=== PATIENT | female | born 1975 | race Asian ===

== ENCOUNTER 2018-09-01 14:52 | Emergency (ER) | payer OTHER ==
--- OUTSIDE RECORDS SUMMARY | 2018-09-01 14:54 | XMS REPORT | Continuity of Care Document ---
:1975 Author Organization Interface Problems Problem Status Onset Classification Date Comments Source Date Reported Z12.31 - ENCNTR Active 04/16/20 OPID SCREEN MAMMOGRAM FOR [address] [place] [address],[facility] [place] Hepatomegaly, not 02/07/20 04/20/2018 [facility] elsewhere classified [address] [place] [address] ACUTE LUQ PAIN Active 11/13/[address] Encounter for 04/24/2018 OPID screening mammogram [place] for malignant neoplasm of breast Motion sickness Active Problem 04/24/2018 OP[facility] [place],[facility] [place] Nonspecific 04/20/2018 [facility] elevation of levels [facility] of transaminase and Center lactic acid dehydrogenase [LDH] Pure 04/20/2018 [facility] hyperglyceridemia [facility] Medications Medication Details Route Status Patient Ordering Order Source Instructions Provider Date ketOROLAC IV, ONCE Inactive (ANES) 017 [place] lidocaine Route: IV, Drug Inactive (ANES) form: INJ, 017 [place] ONCE, Stop [place] date: 05/30/17 13:44:00 CDT propofol (ANES) Route: IV, Drug Inactive form: INJ, 017 [place] ONCE, Stop [place] date: 05/30/17 13:44:00 CDT fentaNYL (ANES) Route: IV, Drug Inactive form: INJ, 017 [place] ONCE, Stop [place] date: 05/30/17 13:44:00 CDT ceFAZolin Route: IV, Drug Inactive (ANES) form: INJ, 017 [place] ONCE, Stop [place] date: 05/30/17 13:44:00 CDT dexamethasone Route: IV, Drug Inactive (ANES) form: INJ, 017 [place] ONCE, Stop [place] date: 05/30/17 13:44:00 CDT POLYETHYLENE 17 gm, PO, Active GLYCOL 3350 142 Daily, PRN 017 [place] MG/ML Oral Constipation, X [place] Solution 31 day, # 527 [Miralax] gm, 0 Refill(s) tramadol 50 mg=1 tab, Active hydrochloride PO, Q6H, PRN 017 [place] 50 MG Oral Pain, X 5 day, [place] Tablet # 20 tab, 0 Refill(s) Motrin 600 mg 600 mg=1 tab, Active oral tablet PO, Q8H, PRN 017 [place] Pain, take with [place] food, X 5 day, # 15 tab, 0 Refill(s) midazolam Route: IV, Drug Inactive (ANES) form: SOLN, 017 [place] ONCE, Stop [place] date: 05/30/17 13:24:00 CDT ondansetron Route: IV, Drug Inactive (ANES) form: INJ, 017 [place] ONCE, Stop [place] date: 05/30/17 13:24:00 CDT LR 1000 mL INJ Route: IV, Inactive (ANES) Total Volume: 017 [place] 1,000, Start [place] date: 05/30/17 12:45:00 CDT, Stop date: 05/30/17 13:45:00 CDT 72 HR 1 patch, Route: Inactive Scopolamine TOP, Drug Form: 017 [place] 0.0139 MG/HR ERFILM, Dosing [place] Transdermal Weight 56.818, Patch kg, ONCE, Start date: 05/30/17 9:35:00 CDT, Duration: 1 doses or times, Stop date: 05/30/17 9:35:00 CDT Calcium 1,000 mL, Rate: Inactive Chloride 0.0014 25 ml/hr, 017 [place] MEQ/ML / Infuse over: 40 [place] Potassium hr, Route: IV, Chloride 0.004 Dosing Weight MEQ/ML / Sodium 56.818 kg, Chloride 0.103 Total Volume: MEQ/ML / Sodium 1,000, Start Lactate 0.028 date: 05/30/17 MEQ/ML 8:57:00 CDT, Injectable Duration: 30 Solution day, Stop date: 06/29/17 8:56:00 CDT ceFAZolin 2 gm, 100 mL, Inactive Route: IVPB, 017 [place] Drug form: INJ, [place] ONCALL, Start date: 05/30/17 6:00:00 CDT, Duration: 1 doses or times, Stop date: 05/30/17 23:00:00 CDT, ABX Indication: Surgical ProphylaxisNote s: Same as: Ancef Lactated 1,000 mL, Rate: Inactive Ringers 1,000 75 ml/hr, 017 [place] mL Infuse over: [place] 13.3 hr, Route: IV, Dosing Weight 56.818 kg, Total Volume: 1,000, Start date: 05/30/17 6:00:00 CDT, Duration: 30 day, Stop date: 06/29/17 5:59:00 CDT Ofirmev 1,000 mg, 100 Inactive mL, Route: IV, 017 [place] Drug form: INJ, [place] ONCALL, Start date: 05/30/17 6:00:00 CDT, Duration: 1 doses or times, Stop date: 05/30/17 23:00:00 CDTNotes: Infuse over 15 minutes Do not exceed 4gm/day of acetaminophen MEDICATION WASTE Product Size: 1000 mg Product Wasted: ___ mg Neurontin 300 mg, 1 cap, Inactive Route: PO, Drug 017 [place] form: CAP, [place] ONCALL, Start date: 05/30/17 6:00:00 CDT, Duration: 1 doses or times, Stop date: 05/30/17 23:00:00 CDTNotes: (Same as: Neurontin) CeleBREX 400 mg, 2 cap, Inactive Route: PO, Drug 017 [place] form: CAP, [place] ONCALL, Start date: 05/30/17 6:00:00 CDT, Duration: 1 doses or times, Stop date: 05/30/17 23:00:00 CDTNotes: NSAID. Please check indication. Not for seizure. (Same As: CeleBREX) Allergies, Adverse Reactions, Alerts Substance Category Reaction Severity Reaction Status Date Comments Source type Reported Immunizations Immunization Date Given Site Status Last Updated Comments Source Results Order Results Value Reference Date Interpretation Comments Source Name Range Breast Breast 04/21 - OPID Mammo Mammo /2017 - [place] Scrn ALDO Scrn ALDO incl CAD incl CAD KIRAN BECK Read by: Cesilia Valera MD Dictated Date/time: 04/21/18 10:11 BILATERAL DIGITAL SCREENING MAMMOGRAM WITH CAD: 04/21/2018 Electronically Signed by: Cesilia Valera MD 04/21/18 10 :11 FINAL REPORT CLINICAL: /Routine. Current study was evaluated with a Computer Aided Detection (CAD) system. COMPARISON:Comparison is made to exam dated: 04/02/2017 mammogram - [facility]. TECHNIQUE: Mammographic views were obtained using digital acquisition. Current study was also evaluated with a Computer Aided Detection (CAD) system. FINDINGS: The tissue of both breasts is heterogeneously dense, which could obscure detection of small masses. Bilateral breast implants are intact. No significant masses, calcifications, or other findings are seen in either breast. There has been no significant interval change. IMPRESSION: BENIGN RECOMMENDATION:There is no mammographic evidence of malignancy. A 1 year screening mammogram is recommended.(04/22/2019) This exam was interpreted at [id number] for MYAH Ramírez 15. Professional services are provided by the [facility]. Cesilia Valera M.D. ms/penrad:04/21/2018 10:11:32 Career Coach(s): Maria Esther Hernandez [facility] letter sent: BI-RADS 1/2 Dense Mammogram BI-RADS: 2 Benign Spine Spine Study: Cervical spine, 3 views 02/27 - CHANI ERWIN cervical cervical /2017 - [place] 2 or 3 2 or 3 view DX view DX Clinical Indication: - neck pain Read by: Oumar Cruz MD Dictated Date/time: 02/27/18 10:51 Electronically Signed by: Oumar Cruz MD 02/27/18 10:52 FINAL REPORT Comparison: None FINDINGS: Multiple views of the cervical spine show visualization through the top of the T1 vertebral body on the lateral view. No acute vertebral body height loss or subluxation is seen. There is mild reversal of cervical lordosis in the lower cervical spine. Mild disc height loss at C5-C6 is seen, compatible with mild degenerative disc disease. Odontoid process is intact. Prevertebral soft tissues are unremarkable. IMPRESSION: Mild degenerative disc disease of the lower cervical spine. SL: [id number] URINE U Preg Negative Negative 05/30 [place] CHEM /2016 [place] (05/30/17 9:00 AM) Abdomen Abdomen Patient Name: LINDA العرايق 04/16 - OPID RUQ US RUQ US /2016 - [facility] : 1975; Age: 41 years Female MR: [id number] Read by: Ernie Centeno MD Dictated Date/time: 04/16/17 13:43 Electronically Signed by: Ernie Centeno MD 04/16/17 13:46 FINAL REPORT Study: Abdomen RUQ US 04/16/2017 9:47 AM CDT Clinical Indication: R94.5 Abnormal results of liver function studies - R94.5 Abnormal results of liver function studies. COMPARISON: None TECHNIQUE: Grayscale and limited color sonographic evaluation of the right upper quadrant of the abdomen and gallbladder region was performed with standard technique. FINDINGS: LIVER: The liver measures 19 cm sagittally. There is increased parenchymal echotexture. BILE DUCTS: The intrahepatic and extrahepatic bile ducts are not dilated. The common bile duct measures 2.3 mm. The distal common bile duct is not well seen. GALLBLADDER: There are no gallstones, gallbladder sludge, pericholecystic fluid or wall thickening. PANCREAS: The pancreas body is normal. The head and tail are obscured by bowel gas. KIDNEY: The right kidney measures 11.0 x 3.6 x 5.6 cm. The renal cortical thickness measures 1.5 cm. There is normal renal contour and morphology, with normal parenchymal echotexture. There is no hydronephrosis. ASCITES: There is no right upper quadrant abdominal ascites. IMPRESSION: Hepatomegaly. Hepatocellular disease most likely due to fatty infiltration. SL: [id number] Breast Breast - BREAST MAMMO SCRN ALDO INCL CAD KIRAN 04/02 - OPID Mammo Mammo /2016 - [facility] Scrn ALDO Scrn ALDO BILATERAL DIGITAL SCREENING MAMMOGRAM WITH CAD: 04/02/2017 incl CAD incl CAD KIRAN BECK CLINICAL: /Z12.31 Encounter For Screening Mammogram For Malignant Neoplasm Of Breast. Read by: Tracie Rob MD Dictated Date/time: 04/02/17 11:27 Electronically Signed by: Tracie Rob MD 04/02/17 11:27 FINAL REPORT Current study was evaluated with a Computer Aided Detection (CAD) system. No prior exams were available for comparison. The tissue of both breasts is heterogeneously dense, which could obscure detection of small masses. Bilateral breast implants are intact. No significant masses, calcifications, or other findings are seen in either breast. IMPRESSION: NEGATIVE There is no mammographic evidence of malignancy. A 1 year screening mammogram is recommended. Professional services are provided by the [facility] [place] [facility]. Tracie johnson/deandra:04/02/2017 11:27:13 Career Coach: Cherie Sanders, [facility] This exam was dictated and interpreted by [address] [place] [address]. letter sent: Normal [place] Mammogram BI-RADS: 1 Negative Vital Signs Vital Sign Value Date Comments Source Height 152.4 cm 01/12/2018 [facility] Weight 59.545 01/12/2018 [facility] BMI Calculated 25.64 01/12/2018 [facility] Systolic (mm Hg) 105 01/12/2018 [facility] Diastolic (mm Hg) 67 01/12/2018 [facility] Respitory Rate 16 01/12/2018 [facility] Heart Rate 68 01/12/2018 [facility] Center Systolic (mm Hg) 100 05/30/2017 [place] Diastolic (mm Hg) 65 05/30/2017 [place] Respitory Rate 15 05/30/2017 [place] Systolic (mm Hg) 106 05/30/2017 [place] Diastolic (mm Hg) 64 05/30/2017 [place] Respitory Rate 15 05/30/2017 [place] Systolic (mm Hg) 100 05/30/2017 [place] Diastolic (mm Hg) 57 05/30/2017 [place] Respitory Rate 12 05/30/2017 [place] Weight 59.119 05/30/2017 [place] BMI Calculated 23.84 05/30/2017 [place] Heart Rate 61 05/30/2017 [place] Height 157.48 cm 05/27/2017 [place] Heart Rate 66 05/27/2017 [place] Encounters Location Location Encounter Encounter Reason Attending ADM DC Status Source Details Type Number For Provider Date Date Visit [facility] [id number] Lien 04/02 04/03 OP[facility] Outpatient [place] [facility] Outpt Diag [id number] Lien 04/16 04/17 [facility] Outpatient Services [facility] Day Surgery [id number] Shinil 05/30 05/30 [facility] Thiago Brunson [facility] Outpatient [id number] [place] 01/12 01/13 Rickey Das [facility] [id number] Lien 02/27 02/28 [facility] Outpatient Services [place] [facility] Outpt Diag [id number] Lien 04/21 04/22 OPID Outpatient Services Eugene [facility] Procedures Procedure Code Date Perfomer Comments Source Abdominoplasty [id number] OPID [address] [place] [address] Ab[address]oplasty [id number] Abdominoplasty [id number] [place] [address] [id number] [facility] [place] Breast augmentation [id number] [address] Breast augmentation [id number] [facility] 6 Excision of ganglion [id number] EXCISION OF LEFT WRIST [facility] cyst<sup>1</sup> GANGLION CYST / ALL [place] INDICATED PROCEDURES Excision of ganglion [id number] EXCISION OF LEFT WRIST [facility] cyst<sup>1</sup> GANGLION CYST / ALL Medical INDICATED PROCEDURES Center Excision of ganglion [id number] EXCISION OF LEFT WRIST [facility] cyst<sup>1</sup> GANGLION CYST / ALL INDICATED PROCEDURES
--- OUTSIDE RECORDS SUMMARY | 2018-09-01 14:55 | XMS REPORT | Summary of Care ---
:1975 Author Organization [facility] Outpatient Imaging [address] [address]- Encounter HQ Encntr_alias(FIN) [id number] Date(s): 04/16/17 - 04/16/17 [facility] Outpatient Imaging [address] [address]- [phone] Discharge Disposition: Home or Self Care Attending Physician: Rafia Euegne Vital Signs No data available for this section Problem List No data available for this section Allergies, Adverse Reactions, Alerts No data available for this section Medications No data available for this section Results No data available for this section Immunizations No data available for this section Procedures No data available for this section Social History No data available for this section Assessment and Plan No data available for this section
--- OUTSIDE RECORDS SUMMARY | 2018-09-01 14:55 | XMS REPORT | Summary of Care ---
:1975 Author Organization [facility] Address [address] [place], [place] [address]- Encounter HQ Vane([facility]) [id number] Date(s): 05/30/17 - 05/30/17 [facility] [address] [place] [address]- Discharge Disposition: Home or Self Care Attending Physician: Ling Brunson DO Admitting Physician: Ling Brunson DO Referring Physician: Ling Brunson DO Vital Signs Most recent to oldest [Reference 1 2 3 Range]: Height 157.48 cm (05/27/17 11:35 AM) Blood Pressure [90-140/60-90 100/65 mmHg 106/64 mmHg 100/57 mmHg mmHg] (05/30/17 3:40 PM) (05/30/17 3:05 PM) (05/30/17 2:50 PM) Respiratory Rate [14-20 BRMIN] 15 BRMIN 15 BRMIN 12 BRMIN (05/30/17 3:40 PM) (05/30/17 3:05 PM) *LOW* (05/30/17 2:50 PM) Peripheral Pulse Rate [60-100 61 bpm 66 bpm bpm] (05/30/17 9:13 AM) (05/27/17 11:35 AM) Weight 59.119 kg (05/30/17 9:13 AM) Body Mass Index 23.84 m2 (05/30/17 9:13 AM) Problem List Condition Effective Dates Status Health Status Informant Motion sickness(Confirmed) Active Allergies, Adverse Reactions, Alerts Substance Reaction Severity Status NKDA Active Medications ceFAZolin 2 gm, 100 mL, Route: IVPB, Drug form: INJ, ONCALL, Start date: 05/30/17 6:00:00 CDT, Duration: 1 doses or times, Stop date: 05/30/17 23:00:00 CDT, ABX Indication: Surgical Prophylaxis Notes: Same as: Ancef Start Date: 05/30/17 Stop Date: 05/30/17 Status: DiscontinuedceFAZolin (ANES) Route: IV, Drug form: INJ, ONCE, Stop date: 05/30/17 13:44:00 CDT Start Date: 05/30/17 Stop Date: 05/30/17 Status: CompletedCeleBREX 400 mg, 2 cap, Route: PO, Drug form: CAP, ONCALL, Start date: 05/30/17 6:00:00 CDT, Duration: 1 doses or times, Stop date: 05/30/17 23:00:00 CDT Notes: NSAID. Please check indication. Not for seizure. (Same As: CeleBREX) Start Date: 05/30/17 Stop Date: 05/30/17 Status: Completeddexamethasone (ANES) Route: IV, Drug form: INJ, ONCE, Stop date: 05/30/17 13:44:00 CDT Start Date: 05/30/17 Stop Date: 05/30/17 Status: CompletedfentaNYL (ANES) Route: IV, Drug form: INJ, ONCE, Stop date: 05/30/17 13:44:00 CDT Start Date: 05/30/17 Stop Date: 05/30/17 Status: CompletedketOROLAC (ANES) IV, ONCE Start Date: 05/30/17 Stop Date: 05/30/17 Status: CompletedLactated Ringers 1,000 mL 1,000 mL, Rate: 75 ml/hr, Infuse over: 13.3 hr, Route: IV, Dosing Weight 56.818 kg, Total Volume: 1,000, Start date: 05/30/17 6:00:00 CDT, Duration: 30 day, Stop date: 06/29/17 5:59:00 CDT Start Date: 05/30/17 Stop Date: 05/30/17 Status: DiscontinuedLactated Ringers 1,000 mL 1,000 mL, Rate: 25 ml/hr, Infuse over: 40 hr, Route: IV, Dosing Weight 56.818 kg , Total Volume: 1,000, Start date: 05/30/17 8:57:00 CDT, Duration: 30 day, Stop date: 06/29/17 8:56:00 CDT Start Date: 05/30/17 Stop Date: 05/30/17 Status: Discontinuedlidocaine (ANES) Route: IV, Drug form: INJ, ONCE, Stop date: 05/30/17 13:44:00 CDT Start Date: 05/30/17 Stop Date: 05/30/17 Status: CompletedLR 1000 mL INJ (ANES) Route: IV, Total Volume: 1,000, Start date: 05/30/17 12:45:00 CDT, Stop date: 13:45:00 CDT Start Date: 05/30/17 Stop Date: 05/30/17 Status: Completedmidazolam (ANES) Route: IV, Drug form: SOLN, ONCE, Stop date: 05/30/17 13:24:00 CDT Start Date: 05/30/17 Stop Date: 05/30/17 Status: CompletedMiraLax oral powder for reconstitution 17 gm, PO, Daily, PRN Constipation, X 31 day, # 527 gm, 0 Refill(s) Start Date: 05/30/17 Stop Date: 06/30/17 Status: OrderedMotrin 600 mg oral tablet 600 mg=1 tab, PO, Q8H, PRN Pain, take with food, X 5 day, # 15 tab, 0 Refill(s) Start Date: 05/30/17 Stop Date: 06/04/17 Status: OrderedNeurontin 300 mg, 1 cap, Route: PO, Drug form: CAP, ONCALL, Start date: 05/30/17 6:00:00 CDT, Duration: 1 doses or times, Stop date: 05/30/17 23:00:00 CDT Notes: (Same as: Neurontin) Start Date: 05/30/17 Stop Date: 05/30/17 Status: CompletedOfirmev 1,000 mg, 100 mL, Route: IV, Drug form: INJ, ONCALL, Start date: 05/30/17 6:00: 00 CDT, Duration: 1 doses or times, Stop date: 05/30/17 23:00:00 CDT Notes: Infuse over 15 minutesDo not exceed 4gm/day of acetaminophen MEDICATION WASTE ProductSize: 1000 mgProduct Wasted: ___ mg Start Date: 05/30/17 Stop Date: 05/30/17 Status: Discontinuedondansetron (ANES) Route: IV, Drug form: INJ, ONCE, Stop date: 05/30/17 13:24:00 CDT Start Date: 05/30/17 Stop Date: 05/30/17 Status: Completedpropofol (ANES) Route: IV, Drug form: INJ, ONCE, Stop date: 05/30/17 13:44:00 CDT Start Date: 05/30/17 Stop Date: 05/30/17 Status: Completedscopolamine 1.5 mg transdermal film 1 patch, Route: TOP, Drug Form: ERFILM, Dosing Weight 56.818, kg, ONCE, Start date: 05/30/17 9:35:00CDT, Duration: 1 doses or times, Stop date: 05/30/17 9:35: 00 CDT Start Date: 05/30/17 Stop Date: 05/30/17 Status: Completedtramadol 50 mg oral tablet 50 mg=1 tab, PO, Q6H, PRN Pain, X 5 day, # 20 tab, 0 Refill(s) Start Date: 05/30/17 Stop Date: 06/04/17 Status: Ordered Results URINE CHEM Most recent to oldest [Reference Range]: 1 U Preg [Negative] Negative (05/30/17 9:00 AM) Immunizations No data available for this section Procedures Procedure Date Related Diagnosis Body Site Abdominoplasty 2014 Breast augmentation 2006 Excision of ganglion cyst1 1EXCISION OF LEFT WRIST GANGLION CYST / ALL INDICATED PROCEDURES Social History Social History Type Response Alcohol Never Smoking Status Never smoker; Exposure to Tobacco Smoke None; Cigarette Smoking Last 365 Days No; Reg Smoking Cessation Counseling No Assessment and Plan No data available for this section
--- OUTSIDE RECORDS SUMMARY | 2018-09-01 14:55 | XMS REPORT | Summary of Care ---
:1975 Author Organization [facility] Outpatient [facility] [place] Address [address] [place], [place] [address]- Encounter HQ Encntr_alias(FIN) [id number] Date(s): 02/27/18 - 02/27/18 [facility] Outpatient Imaging [address], [address] [place] [phone] Discharge Disposition: Home or Self Care Attending Physician: Rafia Eugene Vital Signs No data available for this section Problem List Condition Effective Dates Status Health Status Informant Motion sickness(Confirmed) Active Allergies, Adverse Reactions, Alerts Substance Reaction Severity Status NKDA Active Medications No data available for this section Results No data available for this section Immunizations No data available for this section Procedures Procedure Date Related Diagnosis Body Site Status Abdominoplasty 2013 Completed Breast augmentation 2005 Completed Excision of ganglion cyst1 Completed 1EXCISION OF LEFT WRIST GANGLION CYST / ALL INDICATED PROCEDURES Social History Social History Type Response Alcohol Never Smoking Status Never smoker; Exposure to Tobacco Smoke None; Cigarette Smoking Last 365 Days No; Reg Smoking Cessation Counseling No entered on: 01/12/18 Assessment and Plan No data available for this section
--- OUTSIDE RECORDS SUMMARY | 2018-09-01 14:55 | XMS REPORT | Summary of Care ---
:1975 Author Organization [facility] Address [address] [place] [address]- Encounter HQ Vane(FIN) [id number] Date(s): 01/12/18 - 01/12/18 [facility] [address] [facility] [address] [place] [address] [phone] Encounter Diagnosis Hepatomegaly, not elsewhere classified (Final) - 02/05/18 Nonspecific elevation of levels of transaminase and lactic acid dehydrogenase [ LDH] (Final) - Pure hyperglyceridemia (Final) - Discharge Disposition: Home or Self Care Attending Physician: Gabino Bowden MD Referring Physician: Gabino Bowden MD Vital Signs Most recent to oldest [Reference Range]: 1 Height 152.4 cm (01/12/18 11:56 AM) Blood Pressure [90-140/60-90 mmHg] 105/67 mmHg (01/12/18 11:56 AM) Respiratory Rate [14-20 BRMIN] 16 BRMIN (01/12/18 11:56 AM) Peripheral Pulse Rate [60-100 bpm] 68 bpm (01/12/18 11:56 AM) Weight 59.545 kg (01/12/18 11:56 AM) Body Mass Index 25.64 m2 (01/12/18 11:56 AM) Problem List Condition Effective Dates Status Health Status Informant Motion sickness(Confirmed) Active Allergies, Adverse Reactions, Alerts Substance Reaction Severity Status NKDA Active Medications No data available for this section Results No data available for this section Immunizations No data available for this section Procedures Procedure Date Related Diagnosis Body Site Status Abdominoplasty 2014 Completed Breast augmentation 2006 Completed Excision of ganglion cyst1 Completed 1EXCISION OF LEFT WRIST GANGLION CYST / ALL INDICATED PROCEDURES Social History Social History Type Response Alcohol Never Smoking Status Never smoker; Exposure to Tobacco Smoke None; Cigarette Smoking Last 365 Days No; Reg Smoking Cessation Counseling No entered on: 01/12/18 Assessment and Plan No data available for this section
--- OUTSIDE RECORDS SUMMARY | 2018-09-01 14:55 | XMS REPORT | Summary of Care ---
:1975 Author Organization [facility] Outpatient Imaging [place] Address [address] [place], [place] [address]- Encounter HQ Encntr_alias(FIN) [id number] Date(s): 04/21/18 - 04/21/18 [facility] Outpatient Imaging [address], [address] [place] [phone] Encounter Diagnosis Encounter for screening mammogram for malignant neoplasm of breast (Final) - Discharge Disposition: Home or Self [...]
--- OUTSIDE RECORDS SUMMARY | 2018-09-01 14:55 | XMS REPORT | Summary of Care ---
:1975 Author Organization [facility] Outpatient Imaging [facility] Address [address] [place] [address]- Encounter HQ Encntr_alias(FIN) [id number] Date(s): 04/02/17 - 04/02/17 [facility] Outpatient Imaging [address] [address] [phone] Discharge Disposition: Home or Self Care Attending [...]
[2018-09-01 15:41] LABS: Urine Blood 2+ (NEG); Urine Glucose NEGATIVE (NEG); Urine Protein NEGATIVE (NEG); Urine Specific Gravity 1.015 (1.005-1.030)
[2018-09-01 15:51] LABS: Absolute Lymphocytes (CBC) 3.2 K/uL (0.7-4.9); Absolute Monocytes 0.7 K/uL (0.1-1.3); Basophils % 1.2 % (0-1.3); Eosinophils % 6.2 % (0-4.4); Hematocrit 37.9 % (36.0-45.0); Lymphocytes % 33.4 % (15.3-44.8); MCH 30.7 pg (27.0-35.0); MCV 88.7 fL (80-100); MPV 7.2 fL (7.6-11.3); Monocytes % 7.1 % (3.3-12.3); RBC Red Blood Cell Count 4.28 M/uL (3.86-4.86)
[2018-09-01 16:28] LABS: BUN Blood Urea Nitrogen 10 mg/dL (7-18); Bicarbonate 29 mmol/L (21-32); Glucose Level 117 mg/dL (74-106); HCG, Quantitative 3502 mIU/mL (1-3); Potassium 3.2 mmol/L (3.5-5.1); Sodium Level 139 mmol/L (136-145)
[2018-09-01] MEDS ORDERED: POTASSIUM CL SA 10 MEQ TAB PO ONE (16:52)
--- NOTE | 2018-09-01 17:19 | RAD REPORT ---
EXAM DESCRIPTION: US - Transvaginal OB - 09/01/2018 5:04 pm CLINICAL HISTORY: Vaginal bleeding, COMPARISON: None. FINDINGS: A normal shaped gestational sac is seen in the fundal portion of the endometrial cavity. Y olk sac is seen. Echogenic tissue is seen believed to be the pole. [place]-rump length of 0.24 cm would correspond to a 5 week 5 day age. Cardiac activity cannot be confirmed. This may simply reflec t a very early gestation and is certainly not specific for demise. No hematoma or mass within t he endometrial cavity. Both ovaries are identified. Doppler evaluation shows blood flow within the bilateral ovarian stroma. No adnexal mass to suspect ectopic . No fluid or blood in the cul-de-sac. Uterus is normal size measuring 8.3 x 6.8 x 6.1 cm. No myometrial mass. IMPRESSION: Intrauterine gestational sac is seen with yolk sac and pole. [place]-rump length corresponds to a 5 week 5 day age. However, cardiac activity could not be confirmed . The lack of cardiac activity may simply reflect a very early gestation. Follow-up sonography and seri al beta HCG can be performed as warranted. No intrauterine mass or hematoma. No adnexal abnormality.
--- NOTE | 2018-09-01 17:28 | EDPHYS ---
Physician Documentation [facility] Name: Yamila Israel Age: 42 yrs Sex: Female : 1975 Arrival Date: 09/01/2018 Time: 14:56 Bed 17 Private MD: Ale Eugene T ED Physician Nikos Baron HPI: 09/01 17:28 This 42 yrs old Female presents to ER via Ambulatory with complaints of Vaginal kb Bleeding, + Preg <12wks. 15:18 The patient presents to the emergency department with vaginal bleeding, that is kb moderate. course: care: private OB physician, in [place]. Previous pregnancies: in previous pregnancies patient has had. Associated signs and symptoms: Pertinent positives: vaginal bleeding, Pertinent negatives: abdominal pain, chest pain, diarrhea, dysuria, fever, frequency, nausea, ruptured membranes, seizure, shortness of breath, vaginal discharge, vomiting. The patient has not experienced similar symptoms in the past. The patient has not recently seen a physician. 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 - Social history:: Smoking status: Patient/guardian denies using tobacco, Patient/guardian denies using alcohol. - Ebola Screening: : Patient negative for fever greater than or equal to 101.5 degrees Fahrenheit, and additional compatible Ebola Virus Disease symptoms Patient denies exposure to infectious person Patient denies travel to an Ebola-affected area in the 21 days before illness onset. ROS: 15:18 Constitutional: Negative for fever, chills, and weight loss, Cardiovascular: Negative kb for chest pain, palpitations, and edema, Respiratory: Negative for shortness of breath, cough, wheezing, and pleuritic chest pain, Abdomen/GI: Negative for abdominal pain, nausea, vomiting, diarrhea, and constipation, Back: Negative for injury and pain, MS/Extremity: Negative for injury and deformity, Skin: Negative for injury, rash, and discoloration, Neuro: Negative for headache, weakness, numbness, tingling, and seizure. 15:18 : Positive for vaginal bleeding. Exam: 15:18 Constitutional: This is a well developed, well nourished patient who is awake, alert, kb and in no acute distress. Head/Face: Normocephalic, atraumatic. Chest/axilla: Normal chest wall appearance and motion. Nontender with no deformity. No lesions are appreciated. Cardiovascular: Regular rate and rhythm with a normal S1 and S2. No gallops, murmurs, or rubs. Normal PMI, no JVD. No pulse deficits. Respiratory: Lungs have equal breath sounds bilaterally, clear to auscultation and percussion. No rales, rhonchi or wheezes noted. No increased work of breathing, no retractions or nasal flaring. Abdomen/GI: Soft, non-tender, with normal bowel sounds. No distension or tympany. No guarding or rebound. No evidence of tenderness throughout. Skin: Warm, dry with normal turgor. Normal color with no rashes, no lesions, and no evidence of cellulitis. MS/ Extremity: Pulses equal, no cyanosis. Neurovascular intact. Full, normal range of motion. Neuro: Awake and alert, GCS 15, oriented to person, place, time, and situation. Cranial nerves II-XII grossly intact. Motor strength 5/5 in all extremities. Sensory grossly intact. Cerebellar exam normal. Normal gait. Vital Signs: 15:03 BP 110 / 75; Pulse 84; Resp 18; Temp 97.9(TE); Pulse Ox 100% on R/A; Weight 54.43 kg; hj Height 5 ft. 2 in. (157.48 cm); Pain 5/10; 17:30 BP 109 / 75; Pulse 83; Resp 16 S; Pulse Ox 100% on R/A; jl7 15:03 Body Mass Index 21.95 (54.43 kg, 157.48 cm) MDM: 15:13 Patient medically screened. kb 15:19 Data reviewed: vital signs, nurses notes. Data interpreted: Pulse oximetry: on room air kb is 100 %. Interpretation: normal. 17:27 Counseling: I had a detailed discussion with the patient and/or guardian regarding: the kb historical points, exam findings, and any diagnostic results supporting the discharge/admit diagnosis, lab results, radiology results, the need for outpatient follow up, an OB/Gyne specialist, to return to the emergency department if symptoms worsen or persist or if there are any questions or concerns that arise at home. 09/01 15:14 Order name: Quantitative Hcg; Complete Time: 16:33 kb 09/01 15:14 Order name: Abo/rh Typing; Complete Time: 16:13 kb 09/01 15:14 Order name: Basic Metabolic Panel; Complete Time: 16:33 kb 09/01 15:14 Order name: CBC with Diff; Complete Time: 16:00 kb 09/01 15:20 Order name: Urine Dipstick--Ancillary (enter results); Complete Time: 16:00 bd 09/01 15:20 Order name: Urine --Ancillary (enter results); Complete Time: 16:00 bd 09/01 15:14 Order name: Urine Test (obtain specimen); Complete Time: 15:40 kb 09/01 15:14 Order name: IV Saline Lock; Complete Time: 15:40 kb 09/01 15:14 Order name: Labs collected and sent; Complete Time: 15:40 kb 09/01 15:14 Order name: NPO; Complete Time: 15:40 kb 09/01 16:33 Order name: US Transvaginal Ob; Complete Time: 17:20 kb 09/01 16:50 Order name: ABO/RH no charge; Complete Time: 16:51 EDMS 09/01 15:14 Order name: Urine Dipstick-Ancillary (obtain specimen); Complete Time: 15:40 kb Administered Medications: 17:41 Drug: Potassium Chloride 40 mEq Route: PO; jl7 17:42 Follow up: Response: Medication administered at discharge. jl7 17:41 Drug: Tylenol 1000 mg Route: PO; jl7 17:42 Follow up: Response: Medication administered at discharge. jl7 Disposition: 17:46 Co-signature as Attending Physician, Nikos Baron MD. rn Disposition: 09/01/18 17:28 Discharged to Home. Impression: Less than 8 weeks gestation of . - Condition is Stable. - Discharge Instructions: First Trimester of , [id number]. - Medication Reconciliation Form, Thank You Letter, Antibiotic Education, Prescription Opioid Use form. - Follow up: Emergency Department; When: As needed; Reason: Worsening of condition. Follow up: Private Physician; When: 2 - 3 days; Reason: Recheck today's complaints, Continuance of care, Re-evaluation by your physician. Signatures: Dispatcher [employer] Miriam Lobo, JAY-Santos THOMPSON-Nikos Mac MD MD rn Joaquin, Henry, RN RN hj Leal, Jahala, RN RN jl7 Corrections: (The following items were deleted from the chart) 17:44 17:28 09/01/2018 17:28 Discharged to Home. Impression: Less than 8 weeks gestation of jl7 . Condition is Stable. Forms are Medication Reconciliation Form, Thank You Letter, Antibiotic Education, Prescription Opioid Use. Follow up: Emergency Department; When: As needed; Reason: Worsening of condition. Follow up: Private Physician; When: 2 - 3 days; Reason: Recheck today's complaints, Continuance of care, Re-evaluation by your physician. kb
--- NOTE | 2018-09-01 17:28 | ER ---
Nurse's Notes [facility] Name: Yamila Israel Age: 42 yrs Sex: Female : 1975 Arrival Date: 09/01/2018 Time: 14:56 Bed 17 Private MD: Ale Eugene T Diagnosis: Less than 8 weeks gestation of Presentation: 09/01 14:57 Presenting complaint: Patient states: LMP- 06/14/18; an hour ago, I started bleeding, hj heavy bleed with color purple; A0; reports abd pain; 5/10;. Transition of care: patient was not received from another setting of care. Onset of symptoms was September 01, 2018. Risk Assessment: Do you want to hurt yourself or someone else? Patient reports no desire to harm self or others. Initial Sepsis Screen: Does the patient meet any 2 criteria? No. Patient's initial sepsis screen is negative. Does the patient have a suspected source of infection? No. Patient's initial sepsis screen is negative. Care prior to arrival: None. 14:57 Method Of Arrival: Ambulatory 14:57 Acuity: ALEKSANDAR 3 hj Triage Assessment: 15:02 General: Appears in no apparent distress. uncomfortable, Behavior is calm, cooperative, hj appropriate for age. Pain: Complains of pain in abdomen. : Reports vaginal bleeding that is Parent/caregiver report the patient having. 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 - Social history:: Smoking status: Patient/guardian denies using tobacco, Patient/guardian denies using alcohol. - Ebola Screening: : Patient negative for fever greater than or equal to 101.5 degrees Fahrenheit, and additional compatible Ebola Virus Disease symptoms Patient denies exposure to infectious person Patient denies travel to an Ebola-affected area in the 21 days before illness onset. Screenin:03 Abuse screen: Denies threats or abuse. Denies injuries from another. Nutritional hj screening: No deficits noted. Tuberculosis screening: No symptoms or risk factors identified. Fall Risk None identified. Assessment: 15:30 Obstetrical Assessment: General assessment: awake and alert, anxious, skin warm and jl7 dry, respirations even and unlabored. General: Pt reports she started spotting on Friday, had a doctor appointment yesterday and started bleeding heavy today with small clots noted in the blood.. Pain: Complains of pain in right lower quadrant and left lower quadrant Quality of pain is described as crampy, Pain began 2-3 days ago. Is intermittent. 16:30 Reassessment: Patient appears in no apparent distress at this time. No changes from jl7 previously documented assessment. Patient and/or family updated on plan of care and expected duration. Pain level reassessed. Patient is alert, oriented x 3, equal unlabored respirations, skin warm/dry/pink. 17:30 Reassessment: No changes from previously documented assessment. Patient and/or family jl7 updated on plan of care and expected duration. Pain level reassessed. Patient is alert, oriented x 3, equal unlabored respirations, skin warm/dry/pink. Vital Signs: 15:03 BP 110 / 75; Pulse 84; Resp 18; Temp 97.9(TE); Pulse Ox 100% on R/A; Weight 54.43 kg; hj Height 5 ft. 2 in. (157.48 cm); Pain 5/10; 17:30 BP 109 / 75; Pulse 83; Resp 16 S; Pulse Ox 100% on R/A; jl7 15:03 Body Mass Index 21.95 (54.43 kg, 157.48 cm) ED Course: 14:56 Patient arrived in ED. sb2 14:56 Ale Eugene MD is Private Physician. sb2 15:01 Triage completed. hj 15:03 Arm band placed on left wrist. hj 15:05 Patient has correct armband on for positive identification. Placed in gown. Bed in low hj position. Call light in reach. Adult w/ patient. 15:13 Miriam Marshall FNP-C is PHCP. kb 15:13 Nikos Baron MD is Attending Physician. kb 15:25 Florida Mittal RN is Primary Nurse. jl7 15:40 Initial lab(s) drawn, by me, sent to lab. Inserted saline lock: 20 gauge in right jl7 antecubital area, using aseptic technique. Blood collected. 17:05 US Transvaginal Ob In Process Unspecified. EDMS 17:44 No provider procedures requiring assistance completed. IV discontinued, intact, jl7 bleeding controlled, No redness/swelling at site. Pressure dressing applied. Administered Medications: 17:41 Drug: Potassium Chloride 40 mEq Route: PO; jl7 17:42 Follow up: Response: Medication administered at discharge. jl7 17:41 Drug: Tylenol 1000 mg Route: PO; jl7 17:42 Follow up: Response: Medication administered at discharge. jl7 Outcome: 17:28 Discharge ordered by . kb 17:44 Discharged to home ambulatory. jl7 17:44 Condition: stable 17:44 Discharge instructions given to patient, family, Instructed on discharge instructions, follow up and referral plans. Demonstrated understanding of instructions, follow-up care. 17:44 Patient left the ED. jl7 Signatures: Dispatcher [employer] EDFL Miriam Marshall, ADZ WORKER-C ADZ WORKER-Bridger Rousseau, RN RN Florida Eckert RN RN jl7 Isabela Silverio sb2 Corrections: (The following items were deleted from the chart) 15:01 14:57 Presenting complaint: Patient states: LMP- 18; an hour ago, I started hj bleeding, heavy bleed with color purple; A0; hj 15:05 15:03 Pulse 84bpm; Resp 18bpm; Pulse Ox 100% RA; Temp 97.9F Temporal; 54.43 kg; Height hj 5 ft. 2 in.; BMI: 21.9; Pain 5/10; hj
[2018-09-01] MEDS ORDERED: ACETAMINOPHEN 500 MG TAB ONE (17:38)
== END 2018-09-01 17:44 | disposition home or self-care (01) ==
LOC: ER 14:52
DX: O26.891 Other specified pregnancy related conditions, first trimester (principal)
CPT/HCPCS: 36415; 76817; 80048; 81003; 81025; 84702; 85025; 86900; 86901; 99284